=== PATIENT | male | born 1970 | race Caucasian/White ===

== ENCOUNTER 2016-12-27 08:50 | Emergency (ER) | payer OTHER ==
[2016-12-27] MEDS ORDERED: Adacel (T-DAP) 0.5 ML VIAL ONE (09:46)
[2016-12-27 10:22] LABS: #Lymphocytes 1.2 thou/uL (1.20-3.40); #Monocytes 0.4 thou/uL (0.11-0.59); #Neutrophils 3.8 thou/uL (1.40-6.50); %Basophils 0.7 % (0.0-1.0); %Eosinophils 0.4 % (0.0-10.0); %Lymphocytes 21.6 % (21.0-51.0); %Neutrophils 70.3 % (42.0-75.0); Hemoglobin 14.1 g/dL (14.0-18.0); Mean Corpuscular HGB CONC 33.5 g/dL (32.0-36.0); Mean Corpuscular Hemoglobin 31.5 pg (27.0-31.0); Mean Platelet Volume 7.5 fL (7.4-10.4); Platelet Count 193 thou/uL (130-400); RBC Distribution Width 12.1 % (11.5-14.5); Red Blood Cell (RBC) Count 4.49 mill/uL (4.70-6.10); White Blood Cell (WBC) Count 5.5 thou/uL (4.8-10.8)
[2016-12-27 10:38] LABS: ALT (SGPT) 24 U/L (8-55); AST (SGOT) 37 U/L (5-34); Albumin 4.4 g/dL (3.5-5.0); Alkaline Phosphatase 66 U/L (40-150); Anion Gap 13 mmol/L (10-20); BUN (Urea Nitrogen) 16 mg/dL (8.9-20.6); Bilirubin, Total 0.4 mg/dL (0.2-1.2); Calc. Creatinine Clearance 0 mL/min (70-130); Calcium 9.2 mg/dL (7.8-10.44); Carbon Dioxide 23 mmol/L (22-29); Chloride 108 mmol/L (98-107); Estimated GFR-MDRD 86; Globulin 2.7 g/dL (2.4-3.5); Glucose 116 mg/dL (70-105); Potassium 3.9 mmol/L (3.5-5.1); Protein, Total 7.1 g/dL (6.0-8.3); Sodium 140 mmol/L (136-145)
--- NOTE | 2016-12-27 22:02 | RAD ---
RIGHT ANKLE 12/27/2016 TECHNIQUE: A total of four views are provided. FINDINGS: Old healed fractures are seen in the distal tibia and fibula. There are acute fractures today, ramirez willam. An oblique fracture is seen in the distal tibial shaft that extends into the medial malleolus. Additionally, there is a displaced fracture of the lateral malleolus, with some bony fragmentation at the fracture site. IMPRESSION: Acute fractures of the distal tibia and fibula, with displacement of some of the fibular fragments. POS: HOME
--- NOTE | 2016-12-27 22:04 | RAD ---
RIGHT FOOT THREE VIEWS 12/27/2016 FINDINGS: The foot proper appears intact. Fractures of the ankle are evident. See ankle dictation for detail s. IMPRESSION: 1. Ankle fractures described elsewhere. 2. No fractures of the foot itself. POS: HOME
== END 2016-12-27 10:43 | disposition short-term general hospital (02) ==
LOC: BURERS 08:50
DX: S82.854A Nondisplaced trimalleolar fracture of right lower leg, initial encounter for closed fracture (principal); W20.8XXA Other cause of strike by thrown, projected or falling object, initial encounter
CPT/HCPCS: 29505; 80053; 85025; 90471; 90715; 96374; J2270